=== PATIENT | female | born 1985 | race African-American/Black ===

== ENCOUNTER 2018-08-26 17:01 | Observation (INO) | payer MEDICAID ==
[~2018-08-26 17:01] MED LIST: ACE650RS PO; PREN-129 PO
== END 2018-08-26 18:55 | disposition home or self-care (01) | DRG 566 ==
LOC: LDRP 17:01
PROVIDERS: ADMIT Specialist; ATTEND Specialist
DX: O00.01 Abdominal pregnancy with intrauterine pregnancy (principal); O99.323 Drug use complicating pregnancy, third trimester; O99.283 Endocrine, nutritional and metabolic diseases complicating pregnancy, third trimester; E86.0 Dehydration; O26.893 Other specified pregnancy related conditions, third trimester; R51 Headache; N89.8 Other specified noninflammatory disorders of vagina; F12.90 Cannabis use, unspecified, uncomplicated; Z3A.37 37 weeks gestation of pregnancy
CPT/HCPCS: 59025; 81002; G0378; 96365; 96366

== ENCOUNTER 2018-09-06 23:14 | Observation (INO) | payer MEDICAID | END 2018-09-07 00:10 | disposition home or self-care (01) | DRG 566 | LOC: LDRP 23:14 | PROVIDERS: ADMIT Specialist; ATTEND Specialist | DX: O42.92 Full-term premature rupture of membranes, unspecified as to length of time between rupture and onset of labor (principal); O99.323 Drug use complicating pregnancy, third trimester; F12.90 Cannabis use, unspecified, uncomplicated; Z3A.39 39 weeks gestation of pregnancy | CPT/HCPCS: 59025; 81002; G0378 ==

== ENCOUNTER 2018-09-12 06:50 | Inpatient (IN) | payer MEDICAID ==
[~2018-09-12] VITALS: Ht 167.6 cm; Wt 106.1 kg
[2018-09-12] MEDS ORDERED: LIDOCAINE 2%HCL (LOCAL ANESTH.) INJ 20ML MDV ID PRN (07:30)
[2018-09-12] MEDS ORDERED: METHYLERGONOVINE MALEATE 0.2 MG/ML AMP IM PRN (07:30)
[2018-09-12] MEDS ORDERED: PHISODERM TOP SOLN 240ML BTL TOP PRN (07:30)
[2018-09-12] MEDS ORDERED: LACT. RINGERS/OXYTOCIN 20UNITS 1,000 ML IV SCH ×3 (07:30→18:47)
[2018-09-12] MEDS ORDERED: WITCH HAZEL-GLYCERIN PAD TOP PRN (07:30)
[2018-09-12] MEDS ORDERED: PENICILLIN G POT 5MIL/D5 50ML 50 ML IV ONE (07:30)
[2018-09-12] MEDS ORDERED: DERMOPLAST 60ML BOTTLE TOP PRN (07:30)
[2018-09-12] MEDS ORDERED: LACTATED RINGER'S 1,000 ML IV SCH (07:30)
[2018-09-12 08:13] LABS: Basophils # (auto) 0.1 uL; Hemoglobin 8.8 g/dL (12.2-16.2); Mean Corpuscular Hemoglobin 20.6 pg (28.0-32.0); Monocytes # (auto) 1.1 uL; Monocytes % (auto) 9.5 % (0.0-12.0); Neutrophils # (auto) 8.1 uL
[2018-09-12 08:14] LABS: Basophils % (auto) 0.6 % (0.0-2.0); Eosinophils # (auto) 0.4 uL; Eosinophils % (auto) 3.2 % (0.0-7.0); Hematocrit 26.5 % (36.0-46.0); Lymphocytes # (auto) 2.2 uL; Lymphocytes % (auto) 18.7 % (10.0-50.0); Mean Corpuscular Hgb Conc. 33.3 g/dL (32.0-36.0); Mean Corpuscular Volume 61.9 fL (80.0-100.0); Platelet Count (auto) 229 10^3/uL (140-450); Red Blood Cells 4.29 10^6/uL (4.0-5.20); Red Cell Distribution Width 18.8 % (11.8-14.3); White Blood Cell 11.9 10^3/uL (4.4-10.8)
[2018-09-12 08:25] LABS: Albumin 2.7 g/dL (3.4-5.0); Calcium 8.4 mg/dL (8.5-10.1); Potassium 3.5 mmol/L (3.5-5.1)
[2018-09-12 08:28] LABS: BUN/Creatinine Ratio 16.4; INR 0.95 (0.9-1.15)
[2018-09-12 08:31] LABS: Bilirubin, Total 0.6 mg/dL (0.2-1.0); Total Protein 6.3 g/dL (6.4-8.2)
[2018-09-12] MEDS ORDERED: PROMETHAZINE HCL 25 MG/ML 1ML IV PRN (09:15)
[2018-09-12] MEDS ORDERED: NALBUPHINE HCL 10 MG/1ml INJECTION IV PRN ×2 (09:15→18:00)
[2018-09-12] MEDS ORDERED: TERBUTALINE SULFATE 1 MG/ML 1ML VIAL SC ONE (09:30)
[2018-09-12 10:05] LABS: Alcohol, Urine < 3.0 mg/dL (0-5); Amphetamine Screen, Urine NEGATIVE (NEGATIVE); Barbiturate Scree,Urine NEGATIVE (NEGATIVE); Benzodiazephine Screen, Urine NEGATIVE (NEGATIVE); Cannabinoid Screen, Urine POSITIVE (NEGATIVE); Cocaine Screen, Urine NEGATIVE (NEGATIVE); Opiate Scree,Urine NEGATIVE (NEGATIVE); Phencyclidine Screen, Urine NEGATIVE (NEGATIVE)
[2018-09-12] MEDS ORDERED: PENICILLIN G POTASSIUM 2,500,000 UNITS in D5W 5% 50 ML IV SCH (11:30)
[2018-09-12] MEDS ORDERED: fentaNYL W ROPIVACAINE 150 ML EPI SCH ×2 (15:00→17:30)
[2018-09-12] MEDS ORDERED: ePHEDrine SULFATE 50 MG/ML AMP IV ONE ×2 (15:00→17:30)
[2018-09-12] MEDS ORDERED: NALOXONE HCL 0.4 MG/ML VIAL IV ONE ×2 (15:00→17:30)
[2018-09-12] MEDS ORDERED: SODIUM CHLORIDE 0.9% 500 ML IV PRN (17:30)
[2018-09-12] MEDS ORDERED: LACT. RINGERS/OXYTOCIN 20UNITS 500 ML IV ONE (17:47)
[2018-09-12] MEDS ORDERED: ACETAMINOPHEN 325 MG TAB PO PRN (18:00)
[2018-09-12] MEDS: IBUPROFEN 600 MG TAB PO PRN ×2 (18:06→22:56)
--- NOTE | 2018-09-12 18:30 | NUR ---
Ambulation: Patient OOB with standby assistance by RN. Patient ambulated to bathroom with steady gait. Patient able to void without difficulty 500 ML. [facility] teaching provided with returned demonstration by patient. Clean gown provided and bed linen changed. Patient ambulated back to bed with steady gait and no distress noted.
[2018-09-12 19:00] VITALS: BP 132/78
[2018-09-12] MEDS ORDERED: FERROUS SULFATE 325 MG TAB PO ONE (22:00)
--- NOTE | 2018-09-12 22:24 | NUR ---
Teaching: MOB educated on contraindications of using marijuana and . PT desires to continue against education Reviewed information in [facility] booklet with patient. Discussed benefits of and risks associated with not . Discussed different positions, proper latch, feeding cues, and baby-led . Provided information of medication side effects related to . All questions and concerns addressed at this time. Patient verbalized understanding of information.
[2018-09-12 23:07] VITALS: BP 135/72
[2018-09-13] MEDS: IBUPROFEN 600 MG TAB PO PRN ×4 (02:32→17:30)
[2018-09-13 02:42] VITALS: BP 134/80
[2018-09-13 05:08] LABS: RPR Non Reactive (Non Reactive)
[2018-09-13 07:00] VITALS: BP 132/90
--- NOTE | 2018-09-13 07:16 | NUR ---
PT MEDICATED WITH MOTRIN 600MG PO PER ORDERS FOR ABD CRAMPS AND PAIN TO PERINEUM RATING 6/10.
[2018-09-13] MEDS ORDERED: FERROUS SULFATE 325 MG TAB PO ONE (10:00)
[2018-09-13] MEDS ORDERED: FERROUS SULFATE 325 MG TAB PO SCH (10:00)
[2018-09-13 11:20] VITALS: BP 149/85
--- NOTE | 2018-09-13 12:41 | NUR ---
I received a page from nurse Morel letting me know that there was a social service consult on this patient due to mom/baby + for THC and for mom's score on the depression scale. I spoke with patient-she said she lives with her brothers and her 2 other kids-she states she has all necessary supplies for her new baby-she states she has very good family support. She said the father of the baby Ishmael Schroeder is involved. She verifies that address in chart is correct [address] [place] [address], and that her phone number is [phone]. She said she had been using marijuana sporadically due to her severe nausea and inability to sleep, that she had not used it in the past week and that she would not be using it while she is breast feeding. She does not feel depressed at this time nor has she ever had any depression issues in the past. I let her know that there is a phone number on the back of her [facility] card for behavioral health help if she ever feels like she needs it, and that there is also the [facility] that can offer her immediate assistance. Baby's name is Ledy Schroeder and weight was 8 pounds 5 ounces. I called CPS to open a case-spoke with Lorena-provided her with all necessary information-she provided me with reference number [id number]. I relayed this information to nurse Morel.
[2018-09-13 15:00] VITALS: BP 141/86
--- NOTE | 2018-09-13 17:30 | NUR ---
Discharge: Discharge instructions given as ordered. Pt encouraged to follow up with DEMAND MANAGER as instructed. All questions and concerns addressed. Patient verbalized understanding. Medication reconciliation completed and copy given to patient. . Patient encouraged to prepare to depart unit.
[2018-09-13 18:49] VITALS: BP 142/71
[2018-09-13 19:00] VITALS: BP 145/75
--- NOTE | 2018-09-13 19:00 | NUR ---
Discharge: Patient taken to vehicle via wheelchair with all personal belongings, accompanied by staff and family member. No distress noted at time of departure, no adverse changes in status since initial assessment.
== END 2018-09-13 19:02 | disposition home or self-care (01) | DRG 560 ==
LOC: LDRP 06:50 → OBSVTOIN 06:50
PROVIDERS: ADMIT Obstetrics & Gynecology; ATTEND Obstetrics & Gynecology
PROC: 10E0XZZ Delivery of Products of Conception, External Approach (ICD-10-PCS; principal; 2018-09-12)
PROC: 0UQMXZZ Repair Vulva, External Approach (ICD-10-PCS; 2018-09-12)
PROC: 10H07YZ Insertion of Other Device into Products of Conception, Via Natural or Artificial Opening (ICD-10-PCS; 2018-09-12)
PROC: 3E033VJ Introduction of Other Hormone into Peripheral Vein, Percutaneous Approach (ICD-10-PCS; 2018-09-12)
PROC: 3E0R3BZ Introduction of Anesthetic Agent into Spinal Canal, Percutaneous Approach (ICD-10-PCS; 2018-09-12)
PROC: 00HU33Z Insertion of Infusion Device into Spinal Canal, Percutaneous Approach (ICD-10-PCS; 2018-09-12)
DX: O69.81X0 Labor and delivery complicated by cord around neck, without compression, not applicable or unspecified (principal); O42.02 Full-term premature rupture of membranes, onset of labor within 24 hours of rupture; O71.82 Other specified trauma to perineum and vulva; Z37.0 Single live birth; Z3A.40 40 weeks gestation of pregnancy
CPT/HCPCS: 36415; 59025; 62282; 80053; 80307; 81002; 84112; 85025; 85610; 85730; 86592; 86850; 86900; 86901; 86920; 94760; 96361; 96365; 96366; 96374; G0378; J2540; J2590; J3010; J7060

== ENCOUNTER 2020-02-28 09:05 | Observation (INO) | payer MEDICAID ==
[~2020-02-28] VITALS: Ht 167.6 cm; Wt 113.4 kg
[~2020-02-28 09:05] MED LIST changes: -ACE650RS PO
== END 2020-02-28 12:57 | disposition home or self-care (01) ==
LOC: LDRP 09:05
PROVIDERS: ADMIT Obstetrics & Gynecology; ATTEND Obstetrics & Gynecology
DX: O48.0 Post-term pregnancy (principal); O26.893 Other specified pregnancy related conditions, third trimester; R10.9 Unspecified abdominal pain; O12.03 Gestational edema, third trimester; O99.323 Drug use complicating pregnancy, third trimester; F12.90 Cannabis use, unspecified, uncomplicated; Z87.891 Personal history of nicotine dependence; Z3A.40 40 weeks gestation of pregnancy
CPT/HCPCS: 59025; 76818; 81002; G0378

== ENCOUNTER 2020-03-01 14:30 | Observation (INO) | payer MEDICAID | END 2020-03-01 17:33 | disposition home or self-care (01) | LOC: LDRP 14:30 | PROVIDERS: ADMIT Specialist; ATTEND Specialist | DX: O48.0 Post-term pregnancy (principal); O62.9 Abnormality of forces of labor, unspecified; O99.323 Drug use complicating pregnancy, third trimester; F12.90 Cannabis use, unspecified, uncomplicated; Z79.899 Other long term (current) drug therapy; Z87.891 Personal history of nicotine dependence; Z3A.40 40 weeks gestation of pregnancy | CPT/HCPCS: 59025; 76818; 81002; 96360; 96361; G0378 ==

== ENCOUNTER 2020-03-02 10:51 | Inpatient (IN) | payer MEDICAID ==
[~2020-03-02] VITALS: Ht 167.6 cm; Wt 115.2 kg
[2020-03-02] MEDS ORDERED: LACTATED RINGER'S 1,000 ML IV SCH (11:30)
[2020-03-02] MEDS ORDERED: PENICILLIN G POT 5MIL/D5 50ML 50 ML IV ONE (11:30)
[2020-03-02] MEDS ORDERED: miSOPROStol 50 MCG per PRE-CUT 1/2 TAB PO PRN (11:30)
[2020-03-02] MEDS ORDERED: DERMOPLAST 60ML BOTTLE TOP PRN (11:30)
[2020-03-02] MEDS ORDERED: WITCH HAZEL-GLYCERIN PAD TOP PRN (11:30)
[2020-03-02] MEDS ORDERED: PHISODERM TOP SOLN 240ML BTL TOP PRN (11:30)
[2020-03-02 12:12] LABS: Albumin 2.6 g/dL (3.4-5.0); Calcium 8.5 mg/dL (8.5-10.1); Potassium 3.8 mmol/L (3.5-5.1)
[2020-03-02 12:14] LABS: Eosinophils # (auto) 0.2 10 ^3/uL (0-0.8); Hemoglobin 10.7 g/dL (12.2-16.2); Neutrophils # (auto) 9.6 10 ^3/uL (1.6-8.6)
[2020-03-02 12:19] LABS: Basophils # (auto) 0 10 ^3/uL (0-0.2); Basophils % (auto) 0.3 % (0.0-2.0); Eosinophils % (auto) 1.3 % (0.0-7.0); Lymphocytes % (auto) 16.3 % (10.0-50.0); Mean Corpuscular Hemoglobin 22.8 pg (28.0-32.0); Mean Corpuscular Hgb Conc. 34.5 g/dL (32.0-36.0); Monocytes # (auto) 0.6 10 ^3/uL (0-1.3); Monocytes % (auto) 5.1 % (0.0-12.0); Nucleated Red Blood Cells % 0.2 %; Platelet Count (auto) 243 10^3/uL (140-450); Red Cell Distribution Width 17.8 % (11.8-14.3); White Blood Cell 12.5 10^3/uL (4.4-10.8)
[2020-03-02 12:27] LABS: BUN/Creatinine Ratio 11.8; Bilirubin, Total 0.3 mg/dL (0.2-1.0); Total Protein 6.8 g/dL (6.4-8.2)
[2020-03-02 12:46] LABS: INR 0.95 (0.9-1.15); Partial Thromboplastin Time 29.8 sec (23.0-31.2)
[2020-03-02] MEDS ORDERED: fentaNYL CITRATE 100 MCG/2 ML VL IV ONE (13:45)
[2020-03-02] MEDS ORDERED: fentaNYL 400mCg/200ml W ROPIVA 200 ML EPI SCH (13:45)
[2020-03-02] MEDS ORDERED: LIDOCAINE HCL 2 %PF INJ 10ML AMP IJ ONE (13:45)
[2020-03-02] MEDS ORDERED: LACTATED RINGER'S 1,000 ML IV ONE (13:45)
[2020-03-02] MEDS ORDERED: NALOXONE HCL 0.4 MG/ML VIAL IV ONE (13:45)
[2020-03-02] MEDS ORDERED: ePHEDrine SULFATE 50 MG/ML AMP IV ONE (13:45)
[2020-03-02] MEDS ORDERED: ROPIVACAINE HCL 200 ML EPI SCH ×2 (14:00→14:15)
[2020-03-02] MEDS ORDERED: PENICILLIN G POTASSIUM 2,500,000 UNITS in D5W 5% 50 ML IV SCH (15:30)
[2020-03-02] MEDS ORDERED: BUTORPHANOL TARTRATE 2 MG/1 ML VIAL IV PRN (16:00)
[2020-03-02] MEDS ORDERED: PROMETHAZINE HCL 25 MG/ML 1ML IM PRN (16:00)
[2020-03-02] MEDS ORDERED: LIDOCAINE 2%HCL (LOCAL ANESTH.) INJ 20ML MDV ONE (17:14)
[2020-03-02] MEDS ORDERED: LACT. RINGERS/OXYTOCIN 20UNITS 1,000 ML IV ONE (17:45)
[2020-03-02 17:48] LABS: Amphetamine Screen, Urine NEGATIVE (NEGATIVE); Barbiturate Scree,Urine NEGATIVE (NEGATIVE); Benzodiazephine Screen, Urine NEGATIVE (NEGATIVE); Cannabinoid Screen, Urine POSITIVE (NEGATIVE); Cocaine Screen, Urine NEGATIVE (NEGATIVE); Phencyclidine Screen, Urine NEGATIVE (NEGATIVE)
[2020-03-02 17:56] LABS: Opiate Scree,Urine NEGATIVE (NEGATIVE)
[2020-03-02] MEDS: IBUPROFEN 600 MG TAB PO PRN (18:13)
[2020-03-02 20:28] LABS: Urine Bacteria FEW /hpf (None Seen); Urine Blood 2+ /uL (Negative); Urine Specific Gravity 1.025 (1.001-1.035); Urine WBC 4 /hpf (0 - 5)
[2020-03-02] MEDS ORDERED: ACETAMINOPHEN 500 MG TAB PO ONE (21:00)
[2020-03-02 23:30] VITALS: BP 132/76
[2020-03-03] VITALS (8 sets, daily range): BP systolic 110–146; BP diastolic 63–86
[2020-03-03] MEDS: IBUPROFEN 600 MG TAB PO PRN ×5 (03:07→22:48)
[2020-03-03] MEDS: ACETAMINOPHEN 325 MG TAB PO PRN ×4 (04:28→20:39)
[2020-03-03 05:11] LABS: RPR Non Reactive (Non Reactive)
[2020-03-03] MEDS ORDERED: OXYTOCIN 10UNIT/ML 1ML VIAL IV ONE (19:02)
[2020-03-04] MEDS: ACETAMINOPHEN 325 MG TAB PO PRN ×2 (00:52→08:54)
[2020-03-04 02:47] VITALS: BP 130/78
[2020-03-04] MEDS: IBUPROFEN 600 MG TAB PO PRN (05:17)
[2020-03-04 07:00] VITALS: BP 128/79
== END 2020-03-04 10:26 | disposition home or self-care (01) | DRG 560 ==
LOC: LDRP 10:51 → OBSVTOIN 11:15
PROVIDERS: ADMIT Specialist; ATTEND Specialist
PROC: 10E0XZZ Delivery of Products of Conception, External Approach (ICD-10-PCS; principal; 2020-03-02)
PROC: 3E0P7VZ Introduction of Hormone into Female Reproductive, Via Natural or Artificial Opening (ICD-10-PCS; 2020-03-02)
DX: O69.81X0 Labor and delivery complicated by cord around neck, without compression, not applicable or unspecified (principal); O99.824 Streptococcus B carrier state complicating childbirth; O99.324 Drug use complicating childbirth; F12.90 Cannabis use, unspecified, uncomplicated; Z20.822 Contact with and (suspected) exposure to COVID-19; Z37.0 Single live birth; Z3A.40 40 weeks gestation of pregnancy
CPT/HCPCS: 36415; 59025; 59409; 80053; 80307; 81001; 84112; 85025; 85610; 85730; 86592; 86850; 86900; 86901; 87426; 94760; 96360; 96361; 96365; 96366; 96374; G0378; J2540; J7060

== ENCOUNTER 2021-11-27 20:16 | Emergency (ER) | payer MEDICAID ==
[~2021-11-27] VITALS: Ht 167.6 cm; Wt 100.0 kg
[2021-11-27 20:16] VITALS: BP 122/79
[2021-11-28] MEDS ORDERED: TETANUS-DIPTH-ACEL PERTUSSIS 0.5ML SYR Tdap IM ONE (01:30)
[2021-11-28] MEDS ORDERED: CEPH-510 PO (03:26)
[2021-11-28] MEDS ORDERED: ACET-1158 PO (03:26)
== END 2021-11-28 03:46 | disposition home or self-care (01) ==
LOC: ER 20:18
DX: S70.352A Superficial foreign body, left thigh, initial encounter (principal); F17.210 Nicotine dependence, cigarettes, uncomplicated; F12.10 Cannabis abuse, uncomplicated; W22.8XXA Striking against or struck by other objects, initial encounter; Y93.89 Activity, other specified; Y92.89 Other specified places as the place of occurrence of the external cause; Y99.8 Other external cause status
CPT/HCPCS: 81025; 90471; 90715

== ENCOUNTER 2024-05-03 21:50 | Inpatient (IN) | payer MEDICAID ==
[~2024-05-03] VITALS: Ht 167.6 cm; Wt 125.2 kg
[~2024-05-03 21:50] MED LIST changes: +ACET500T58 PO; +CEPH-510 PO
[2024-05-03] MEDS ORDERED: NALBUPHINE HCL 10 MG/1ml INJECTION IM PRN (22:15)
[2024-05-03] MEDS ORDERED: NALBUPHINE HCL 10 MG/1ml INJECTION IV PRN (22:15)
[2024-05-03 23:48] LABS: Basophils # (auto) 0.1 10 ^3/uL (0-0.2); Eosinophils # (auto) 0.5 10 ^3/uL (0-0.8); Mean Corpuscular Hemoglobin 22.5 pg (28.0-32.0)
[2024-05-03 23:50] LABS: Basophils % (auto) 0.6 % (0.0-2.0); Eosinophils % (auto) 3.8 % (0.0-7.0); Hematocrit 26.5 % (36.0-46.0); Hemoglobin 9.2 g/dL (12.2-16.2); Lymphocytes # (auto) 2.4 10 ^3/uL (0.4-5.4); Lymphocytes % (auto) 18.8 % (10.0-50.0); Mean Corpuscular Hgb Conc. 34.7 g/dL (32.0-36.0); Monocytes # (auto) 1.1 10 ^3/uL (0-1.3); Monocytes % (auto) 8.7 % (0.0-12.0); Neutrophils # (auto) 8.8 10 ^3/uL (1.6-8.6); Neutrophils % (auto) 68.1 % (37.0-80.0); Platelet Count (auto) 256 10^3/uL (140-450); Red Blood Cells 4.08 10^6/uL (4.0-5.20); Red Cell Distribution Width 17.5 % (11.8-14.3)
[2024-05-03 23:54] LABS: Urine Bacteria None Seen /hpf (None Seen)
[2024-05-04 00:02] LABS: INR 0.98 (0.9-1.15); Partial Thromboplastin Time 30.7 SEC (24.5-34.5); Prothrombin Time 10.4 sec (9.3-11.8)
[2024-05-04 00:07] LABS: Alanine Aminotransferase 11 U/L (7-40); Albumin 3.7 g/dL (3.2-4.8); Anion Gap 9 (5-15); BUN/Creatinine Ratio 10.4 (10.0-20.0); Calcium 9.2 mg/dL (8.7-10.4); Carbon Dioxide 21 mmol/L (20-31); Glucose 100 mg/dL (74-106); Sodium 141 mmol/L (136-145); Total Protein 6.1 g/dL (5.7-8.2)
[2024-05-04 00:08] LABS: Bilirubin, Total 0.4 mg/dL (0.2-1.0)
[2024-05-04 00:09] LABS: Alkaline Phosphatase 131 U/L (46-116); Aspartate Aminotransferase 12 U/L (13-40); Blood Urea Nitrogen 5 mg/dL (9-23); Chloride 111 mmol/L (98-107); Potassium 3.3 mmol/L (3.5-5.1)
[2024-05-04 00:25] LABS: Urine Blood Negative /uL (Negative); Urine Clarity Turbid (Clear); Urine Color Yellow (Yellow); Urine Mucus FEW (None Seen); Urine Protein, UAD TRACE (Negative); Urine Specific Gravity 1.023 (1.001-1.035); Urine Squamous Epithelial Cell FEW /hpf (<5); Urine Urobilinogen 8 mg/dL (Negative); Urine WBC 1 /HPF (0-5); Urine pH 6.5 (5.0-9.0)
[2024-05-04 00:27] LABS: Cannabinoid Screen, Urine Pos (NEGATIVE)
[2024-05-04 00:31] LABS: Amphetamine Screen, Urine Neg (NEGATIVE); Barbiturate Scree,Urine Neg (NEGATIVE); Benzodiazephine Screen, Urine Neg (NEGATIVE); Cocaine Screen, Urine Neg (NEGATIVE); Opiate Scree,Urine Neg (NEGATIVE); Phencyclidine Screen, Urine Neg (NEGATIVE)
--- NOTE | 2024-05-04 01:23 | DVHHP2 ---
OB CC & HPI Date Date of Admission: May 04, 2024 Patient Identification: : 5 Para: 4 EDC: May 03, 2024 EGA: 40.1 Chief Complaints: Reason for admission: induction of labor Indication for induction: other (Elective 40+ weeks, Suspected LGA 8lb 6oz baby) History of Present Complaints 39y with term IUP 40.[address] Olmos for elective Induction of Labor (IOL) Patient w/ suspected LGA infant, 8lb 6oz by US last week. Denies GDM, Risk factors: AMA, Morbid obesity, THC+, Gestational HTN, ANEMIA Hb 9.2 SBP's 140's on admission, denies any symptoms of pre eclampsia GBS result, unknown. Past Medical History Cardiac: No pertinent Hx Pulmonary: No pertinent Hx Central Nervous System: No pertinent Hx GI: No pertinent Hx Hemotology/Oncology: Anemia NOS Hepatobiliary: No pertinent Hx Psychiatric: No pertinent Hx Musculoskeletal: No pertinent Hx Rheumotologic: No pertinent Hx Infectious Disease: No peritnent Hx ENT: No pertinent Hx Renal/: No pertinent Hx Endocrine: No pertinent Hx Dermatology: No pertinent Hx Past Surgical History: No pertinent Hx OB History OB History Care: Good Care Ultrasounds: Normal mid trimester US Obstetrical Complications: None Medical Complications: None Allergies: Coded Allergies: Latex (Verified Allergy, Mild, swelling, 05/04/24) Home Meds Active Scripts Acetaminophen (Acetaminophen) 500 Mg Tab, 500 MG PO QIDP, #30 TAB 0 Refills Prov:VENKATESH VELIZ 11/28/21 Cephalexin ( Keflex 500) 500 Mg Cap, 1 CAP PO BID for 7 Days, #14 CAP 0 Refills Prov:VENKATESH VELIZ 11/28/21 Reported Medications Vit W/ Ferrous Fumara () Tab, 1 TAB PO DAILY, TAB 06/22/13 Current Medications Current Medications Medications (Trade) Dose Ordered Sig/Alycia Route PRN Reason Start Time Stop Time Status Last Admin Lactated Ringer's 1,000 ml @ 125 mls/hr Q8H IV 05/03/24 23:00 Nalbuphine HCl (Nubain) 10 mg Q4HP PRN IM MODERATE PAIN (4-6 PAIN SCALE) 05/03/24 22:15 Nalbuphine HCl (Nubain) 10 mg Q4HP PRN IV MODERATE PAIN (4-6 PAIN SCALE) 05/03/24 22:15 Penicillin G Potassium 1939400 units/Dextrose 50 ml @ 100 mls/hr Q4H IV 05/04/24 02:15 Misoprostol (Cytotec) 50 mcg Q4HPRN PRN PO CERVICAL RIPENING 05/04/24 01:00 Family & Social History Family/Social History Blood Type: O+ Rubella: immune RPR/VDRL: Negative GBS Status: Unknown HBsAG: Negative Review of Systems Constitutional: No symptom reported Ears, Nose, & Throat: No symptom reported Eyes: No symptom reported Pulmonary/Respiratory: No symptom reported Cardiovascular: No symptom reported Gastrointestinal: No symptom reported Genitourinary: No symptom reported Musculoskeletal: No symptom reported Skin: No symptom reported Psychiatric: No symptom reported Endocrine: No symptom reported Hemotologic/Lymphatic: No symptom reported OB Admission Exam Physical Exam HEENT: NCAT Heart: Rhythm Normal Lungs: Clear Abdomen: Gravid Extremities: Normal Reflexes: Normal Pelvic Exam: RN exam : Ft/50%/-3 VTX Membranes: Intact Heart Rate: 130's Accelerations: Accelerations Present Decelerations: No Decelerations Short Term Variability: Present Machine Lay Out Worker Variability: Average (6-25) Contractions on Admission: >10 Minutes Apart Intensity: Mild OB Plan Plan Admitting Diagnosis: 1. 39y with Term IUP 40.1 wk, elective induction of labor 2. Suspected LGA fetus, 8lb 6oz EFW 3. GBS unknown 4. Morbid obesity 5/ THC+ Anemia Plan: Induction Induction Methd: Misoprostol protocol Other Plan: Admit for labor and delivery, planned cytotec induction. Informed consent obtained. Indications for IOL discussed. R/B/A of vaginal delivery vs C/Section reviewed Patient declined primary c/section delivery despite uncertainty in predicting EFW accurately. Understands risks of macrosomia including trauma, asphyxia , shoulder dystocia w/ neurological injury to fetus and even BP's elevated, Gestational HTN. PIH labs and urine Prot/cr ratio normal. Will continue to observe. - IV labetalol in labor PRN SBP> 160 or DBP> 110 per protocol. - Will consider Magnesium Sulfate if severe features of HTN become present.Currently, MagSO4 not indicated THC+, counseled regarding risks to self and fetus GBS unknown, will administer Steff prophylaxis when SROM or in active labor. Care endorsed to Dr. Olmos, recreational resort manager physician at 0700 Visit Coding OBGYN Date of Service: May 04, 2024 Billing Provider: CLAUS FREITAS DO ANIMAL ECOLOGIST Common Visit Codes: [id number] INP/OBS CARE (HIGH) CLAUS FREITAS DO May 04, 2024 01:23
[2024-05-04] MEDS: miSOPROStol 50 MCG per PRE-CUT 1/2 TAB PO PRN (01:30)
[2024-05-04 01:32] LABS: Protein, Urine 38.6 mg/dL (1-14)
[2024-05-04 01:35] LABS: Creatinine, Urine 191.18 mg/dL (30.0-125.0); Urine Protein/Creatinine Ratio 0.2
[2024-05-04] MEDS: ePHEDrine SULFATE 50 MG/ML AMP IV ONE (02:30)
[2024-05-04] MEDS: NALOXONE HCL 0.4 MG/ML VIAL IV ONE (02:30)
[2024-05-04] MEDS: LACTATED RINGER'S 1,000 ML IV ONE (02:36)
[2024-05-04] MEDS: LACTATED RINGER'S 1,000 ML IV SCH (02:36)
[2024-05-04] MEDS: LACT. RINGERS/OXYTOCIN 20UNITS 500 ML IV ONE ×2 (02:45→03:15)
[2024-05-04] MEDS: LABETALOL HCL 200 MG TAB PO ONE (02:45)
[2024-05-04] MEDS: PENICILLIN G POT 5MIL/D5 50ML 50 ML IV ONE (02:47)
[2024-05-04] MEDS: POTASSIUM CHL 20 Meq TABLET PO ONE (02:47)
--- NOTE | 2024-05-04 04:14 | EPIDURAL ---
Anesthesia Procedural Note - Epidural Informed consent obtained?: Yes Medication Administered: Fentanyl 100 mcg Sterile prept drape: Yes Spinal level of insertion: L4-L5 Test dose of lidocaine & Epine: Negative Infusion started: Yes Start time: 03:15 End time: 04:00 Procedure description Procedure description: Called for labor analgesia. Chart reviewed, history taken and patient examined. Patient is here for induction of labor at 40+1 weeks gestation. Patient found to have elevated blood pressures upon admission, being monitored for PIH. She is requesting epidural. Informed consent for CSE obtained. Sitting position, sterile prep and drape. L4-5 space infiltrated with 1% lido at 0319 (BP 184/93 HR 121 spO2 96). Epidural needle placed with LEA at 9cm. 25G spinal needle +clear CSF. 15mcg fentanyl given IT at 0330 (BP 173/80 HR 114 spO2 96). Epidural catheter secured at 15cm. Aspiration and test dose (3cc 1.5% lido with epi) negative at 0334 (BP 148/1000 HR 112 spO2 97). 85 mcg fentanyl given via epidural at 0337 (BP 149/90 HR 114 spO2 96). Patient reports good pain relief. 0.2% ropivacaine infusion started at 0352 (BP 155/75 HR 98 spO2 96). Will follow as needed. CATIE TOVAR MD May 04, 2024 04:14
[2024-05-04] MEDS: LABETALOL HCL 20 MG/4 ML VL IV PRN (04:18)
[2024-05-04] MEDS: fentaNYL CITRATE 100 MCG/2 ML VL IV ONE (04:53)
[2024-05-04] MEDS: PENICILLIN G POTASSIUM 2,500,000 UNITS in D5W 5% 50 ML IV SCH (08:02)
[2024-05-04] MEDS: LABETALOL HCL 200 MG TAB PO SCH (10:09)
[2024-05-04] MEDS: LIDOCAINE HCL 2 %PF INJ 10ML AMP IJ ONE ×2 (15:39→16:44)
[2024-05-04] MEDS: fentaNYL CITRATE 100 MCG/2 ML VL ONE (15:39)
[2024-05-04] MEDS: ROPIVACAINE HCL 200 ML ONE (18:59)
[2024-05-05] VITALS (14 sets, daily range): BP systolic 121–168; BP diastolic 65–85; PULSE 62–73; RESP 16–18; TEMP 97.8–98.6; O2SAT 93–100
[2024-05-05] MEDS: ROPIVACAINE HCL 200 ML ONE (03:49)
--- NOTE | 2024-05-05 05:58 | DVHPN2 ---
Chief Complaints Patient reports: No new complaints, Other (PATIENT 3 CM CONTINUED INDUCTION.) Nursing reports: No new complaints, No abdominal pain, No chest pain, No dizziness, No cough Objective Vitals Vital Signs Date Time Temp Pulse Resp B/P (MAP) Pulse Ox O2 Delivery O2 Flow Rate FiO2 05/04/24 23:01 87 132/75 Medications Current Medications Medications (Trade) Dose Ordered Sig/Alycia Route PRN Reason Start Time Stop Time Status Last Admin Labetalol HCl (Normodyne Tablet) 200 mg Q12HR PO 05/04/24 10:00 05/04/24 23:01 General: Normal Neck: Normal Lungs: Normal Cardiovascular: Normal Abdominal: Normal Musculoskeletal: Normal Extremities: Normal Skin: Normal Neurological: Normal Studies Laboratory Tests 05/03/24 22:55 Test 05/03/24 22:55 Range/Units Serum Glucose 100 74-106 mg/dL Ass/Plan Assessment INDUCTION Plan EXPECTANT MANAGEMENT WE WILL HOLD OFF PITOCIN DR. Pacheco will take [place] REAL DO May 05, 2024 05:58
[2024-05-05] MEDS: WITCH HAZEL-GLYCERIN PAD TOP PRN (06:52)
[2024-05-05] MEDS: PHISODERM TOP SOLN 240ML BTL TOP PRN (06:52)
[2024-05-05] MEDS: DERMOPLAST 60ML BOTTLE TOP PRN (06:52)
--- NOTE | 2024-05-05 08:25 | DVHPN2 ---
OB Labor Progress Note Date and Time Seen Date Seen: May 05, 2024 Time Seen: 08:23 Subjective Patient reports: Feels better Objective Vital Signs AFEB vs stable Monitoring Method Monitoring Method: External Heart Rate Heart Rate Baseline: 130 Heart Rate Variability: Moderate Presence of FHR Accelerations: Yes Presence of FHR Decelerations: No Contractions Contractions Intensity: Moderate Membranes Membranes: Intact Vaginal Exam Vag Exam Deferred: No Vaginal Exam Dilation: 4 Vaginal Exam Effacement: 50 Vaginal Exam Station: -4 Vaginal Exam Presentation: Breech Vaginal Exam Show: None Medications Medications - Pitocin: No Medication - Epidural: Yes Lab Results Lab Results Vital Signs Date Time Temp Pulse Resp B/P (MAP) Pulse Ox O2 Delivery O2 Flow Rate FiO2 05/04/24 23:01 87 132/75 Current Medications Medications (Trade) Dose Ordered Sig/Alycia Start Time Stop Time Status Last Admin Dose Admin Lactated Ringer's 1,000 ml @ 125 mls/hr Q8H 05/03/24 23:00 05/05/24 03:50 125 MLS/HR Nalbuphine HCl (Nubain) 10 mg Q4HP PRN 05/03/24 22:15 Nalbuphine HCl (Nubain) 10 mg Q4HP PRN 05/03/24 22:15 Penicillin G Potassium 50 ml @ 100 mls/hr ONCE ONCE 05/03/24 22:15 05/03/24 22:44 DC 05/04/24 02:47 100 MLS/HR Penicillin G Potassium 6777487 units/Dextrose 50 ml @ 100 mls/hr Q4H 05/04/24 02:15 05/05/24 04:49 100 MLS/HR Misoprostol (Cytotec) 50 mcg Q4HPRN PRN 05/04/24 01:00 05/05/24 03:46 50 MCG Potassium Chloride (Klor-Con Tablet) 40 meq ONCE ONCE 05/04/24 01:30 05/04/24 01:39 DC 05/04/24 02:47 40 MEQ Labetalol HCl (Labetalol HCl) 20 mg Q2HPRN PRN 05/04/24 02:00 05/04/24 04:18 20 MG Naloxone HCl (Narcan) 0.2 mg PRN ONCE 05/04/24 02:30 05/04/24 02:34 DC Ephedrine Sulfate (ePHEDrine SULFATE) 10 mg PRN ONCE 05/04/24 02:30 05/04/24 02:34 DC Fentanyl Citrate 100 mcg ONCE ONCE 05/04/24 02:30 05/04/24 02:34 DC 05/04/24 04:53 100 MCG Lidocaine HCl (Xylocaine-Pf 2% Injection) 10 ml ONCE ONCE 05/04/24 02:30 05/04/24 02:34 DC 05/04/24 15:39 10 ML Lactated Ringer's 1,000 ml @ 1,000 mls/hr Q1H ONCE 05/04/24 02:30 05/04/24 03:29 DC 05/04/24 02:36 1,000 MLS/HR Witch Kimberly (Tucks) 1 pad PRN PRN 05/04/24 02:45 05/05/24 06:52 1 PAD Sodium Lauryl Sulfate (Phisoderm) 240 ml PRN PRN 05/04/24 02:45 05/05/24 06:52 240 ML Benzocaine (Dermoplast) 1 applic PRN PRN 05/04/24 02:45 05/05/24 06:52 1 APPLIC Oxytocin 500 ml @ 999 mls/hr Q31M ONCE 05/04/24 02:45 05/04/24 03:15 DC Oxytocin 500 ml @ 125 mls/hr Q4H ONCE 05/04/24 03:15 05/04/24 07:14 DC Labetalol HCl (Normodyne Tablet) 200 mg ONCE ONCE 05/04/24 02:45 05/04/24 02:46 DC Labetalol HCl (Normodyne Tablet) 200 mg Q12HR 05/04/24 10:00 05/04/24 23:01 200 MG Laboratory Tests Test 05/03/24 23:00 05/03/24 22:55 Range/Units Urine Color Yellow Yellow Urine Clarity Turbid H Clear Urine pH 6.5 5.0-9.0 Urine Specific [place] 1.023 1.001-1.035 Urine Protein Trace H Negative Urine Ketones Negative Negative Urine Blood Negative Negative /uL Urine Nitrite Negative Negative Urine Bilirubin Negative Negative Urine Urobilinogen 8 H Negative mg/dL Urine Leukocyte Esterase Negative Negative /uL Urine RBC 9 0 - 4 /hpf Urine Microscopic WBC 1 0-5 /HPF Urine Squamous Epithelial Cells Few <5 /hpf Urine Calcium Oxalate Crystals Many None Seen Urine Bacteria None seen None Seen /hpf Urine Mucus Few None Seen Urine Creatinine 191.18 H 30.0-125.0 mg/dL Urine Protein/Creatinine Ratio 0.20 Urine Glucose Normal Normal mg/dL Urine Total Protein 38.6 H 1-14 mg/dL Urine Opiates Screen Neg NEGATIVE Urine Fentanyl Screen Neg NEGATIVE Urine Barbiturates Screen Neg NEGATIVE Urine Phencyclidine Screen Neg NEGATIVE Urine Amphetamines Screen Neg NEGATIVE Urine Benzodiazepines Screen Neg NEGATIVE Urine Cocaine Screen Neg NEGATIVE Urine Cannabinoids Screen Pos NEGATIVE White Blood Count 13.0 H 4.4-10.8 10^3/uL Red Blood Count 4.08 4.0-5.20 10^6/uL Hemoglobin 9.2 L 12.2-16.2 g/dL Hematocrit 26.5 L 36.0-46.0 % Mean Corpuscular Volume 65.0 L 80.0-100.0 fL Mean Corpuscular Hemoglobin 22.5 L 28.0-32.0 pg Mean Corpuscular Hemoglobin Concent 34.7 32.0-36.0 g/dL Red Cell Distribution Width 17.5 H 11.8-14.3 % Platelet Count 256 140-450 10^3/uL Mean Platelet Volume 8.4 6.9-10.8 fL Neutrophils (%) (Auto) 68.1 37.0-80.0 % Lymphocytes (%) (Auto) 18.8 10.0-50.0 % Monocytes (%) (Auto) 8.7 0.0-12.0 % Eosinophils (%) (Auto) 3.8 0.0-7.0 % Basophils (%) (Auto) 0.6 0.0-2.0 % Neutrophils # (Auto) 8.8 H 1.6-8.6 10 ^3/uL Lymphocytes # (Auto) 2.4 0.4-5.4 10 ^3/uL Monocytes # (Auto) 1.1 0-1.3 10 ^3/uL Eosinophils # (Auto) 0.5 0-0.8 10 ^3/uL Basophils # (Auto) 0.1 0-0.2 10 ^3/uL Nucleated Red Blood Cells 0.0 % Prothrombin Time 10.4 9.3-11.8 sec Prothrombin Time INR 0.98 0.9-1.15 Activated Partial Thromboplast Time 30.7 24.5-34.5 SEC Sodium Level 141 136-145 mmol/L Potassium Level 3.3 L 3.5-5.1 mmol/L Chloride Level 111 H 98-107 mmol/L Carbon Dioxide Level 21 20-31 mmol/L Anion Gap 9 5-15 Blood Urea Nitrogen 5 L 9-23 mg/dL Creatinine 0.48 L 0.550-1.02 mg/dL Glomerular Filtration Rate Calc 125 >90 mL/min BUN/Creatinine Ratio 10.4 10.0-20.0 Serum Glucose 100 74-106 mg/dL Uric Acid 4.7 3.1-7.8 mg/dL Calcium Level 9.2 8.7-10.4 mg/dL Total Bilirubin 0.4 0.2-1.0 mg/dL Aspartate Amino Transferase (AST) 12 L 13-40 U/L Alanine Aminotransferase (ALT) 11 7-40 U/L Alkaline Phosphatase 131 H 46-116 U/L Total Protein 6.1 5.7-8.2 g/dL Albumin 3.7 3.2-4.8 g/dL Treponema pallidum Antibody Non-reactive Negative Hepatitis C Antibody Negative Negative Assessment Assessment Induction of labor, now malpresentation, fetus not engaged, breech confirmed by US small parts felt on cervical exam Plan Plan Stop induction due to malpresentation Will proceed w/ ' C/Section R/B/A discussed w/ patient Informed consent obtained. Plan discussed with: Patient Visit Coding OBGYN Date of Service: May 05, 2024 Billing Provider: CLAUS FREITAS DO DIRECTOR OF GOVERNMENT SALES Common Visit Codes: [id number] INP/OBS CARE(HIGH) CLAUS FREITAS DO May 05, 2024 08:25
--- NOTE | 2024-05-05 08:45 | DVH ---
LIMITED OB ULTRASOUND > 14 WKS: HISTORY: lie, possible breech TECHNIQUE: Multiple real-time grayscale images of the gravid uterus with duplex Doppler color flow an d M-mode spectral analysis. TRANSDUCER: Transabdominal COMPARISON: None FINDINGS/IMPRESSION: Single intrauterine . Oblique /breech presentation. Anterior placenta. heart rate 141 beats per minute Current JO, 10.1 cm.
[2024-05-05] MEDS: ceFAZolin 2 GM/D5W50ml 50 ML IV ONE (09:59)
[2024-05-05] MEDS: LIDOCAINE HCL 2 %PF INJ 10ML AMP IJ ONE (10:35)
[2024-05-05] MEDS ORDERED: MIDAZOLAM HCL 2MG/2ML 2ml VIAL (1mg/ml) ONE (10:42)
[2024-05-05] MEDS ORDERED: MORPHINE SULF PF 5 MG/10 ML VIAL ONE (10:42)
[2024-05-05] MEDS ORDERED: fentaNYL CITRATE 100 MCG/2 ML VL ONE (10:42)
[2024-05-05] MEDS: LIDOCAINE 1% HCL (LOCAL ANESTH.) INJ 20ML MDV ONE (11:10)
[2024-05-05] MEDS ORDERED: ONDANSETRON HCL 4 MG/2 ML VIAL ONE (11:30)
[2024-05-05] MEDS ORDERED: MIDAZOLAM HCL 2MG/2ML 2ml VIAL (1mg/ml) IV PRN (12:15)
[2024-05-05] MEDS ORDERED: DexAMETHasone SOD PHOS 10MG/1ML VIAL INJ IV PRN (12:15)
[2024-05-05] MEDS ORDERED: hydrALAZINE HCL 20 MG/ML VL IV PRN ×2 (12:15→13:15)
[2024-05-05] MEDS ORDERED: diphenhdrAMINE HCL 50 MG/1 ML VL IV PRN (12:15)
[2024-05-05] MEDS ORDERED: ONDANSETRON HCL 4 MG/2 ML VIAL IV PRN (12:15)
[2024-05-05] MEDS ORDERED: ePHEDrine SULFATE 50 MG/ML AMP IV PRN (12:15)
[2024-05-05] MEDS ORDERED: HYDROmorphone HCL 2 MG/ML VL/or syr IV PRN ×2 (12:15→12:45)
--- NOTE | 2024-05-05 12:29 | DVHOP ---
DATE OF SURGERY: 05/05/2024 PREOPERATIVE DIAGNOSES: * Term intrauterine with a failed induction. * unstable lie. * Maternal morbid obesity. FINAL DIAGNOSES: * Term intrauterine with a failed induction. * unstable lie. * Polyhydramnios. * Maternal morbid obesity. PROCEDURE PERFORMED: Primary low transverse section via Pfannenstiel skin incision. SURGEON: Wesly Sainz DO PUBLIC RELATIONS ANALYST: diagnostic tech. TYPE OF ANESTHESIA: Epidural. ANESTHESIOLOGIST: Kain Fitch MD INDICATIONS FOR PROCEDURE: The patient is a 39-year-old female who presented for induction of labor for suspected large for gestational age fetus. The patient was in early labor, 4 cm dilated upon which a cervical exam revealed a non-vertex presentation that was confirmed by ultrasound. The baby had turned to breech. Therefore, she was consented for a primary section. DESCRIPTION OF FINDINGS: Delivery of a liveborn female infant, scores of 8 and 9, weight 7 pounds 14 ounces. Clear amniotic fluid, polyhydramnios present. Unstable lie. The baby had spontaneously reverted back to cephalic presentation, but with umbilical cord also presenting.. Normal uterus. Two layer uterine closure. Normal bilateral fallopian tubes and ovaries, normal-appearing placenta. TECHNICAL PROCEDURE: After informed consent was obtained, the patient was taken to the operating room where her epidural anesthesia was found to be adequate. She was placed in the supine position with a slight leftward tilt. She was sterilely prepped and draped in the usual sterile fashion. A Pfannenstiel skin incision was made with the scalpel. The incision developed sharply to the underlying layer of fascia. The fascia was incised in the midline and extended laterally using sharp technique. The rectus muscles were dissected off the rectus fascia and entry into the peritoneal cavity was performed bluntly. The peritoneal incision was stretched manually. Next, the Osman O retractor was placed into the incision. Using a second scalpel, the lower uterine segment was incised in a low transverse fashion. The incision was extended laterally. The amniotic fluid membranes were ruptured. The fluid was clear. The baby was found to be in cephalic presentation again. The baby was delivered atraumatically. After delivery of the infant, the nose and mouth were suctioned. The cord was clamped and cut after 60 seconds and the baby handed off to waiting pediatric team. Cord blood was obtained. The placenta was spontaneously delivered. The uterus was exteriorized and cleared of all clots and debris using moist laparotomy sponges. The uterine incision was repaired with #1 spiral Stratafix in continuous running fashion in 2 layers. Excellent tissue approximation and hemostasis was obtained. The cul-de-sac and pericolic gutters were cleared of all clots and debris. The uterus was returned to the abdomen. The pelvis was irrigated with sterile water. Hemostasis was confirmed. All instrumentation was removed from the patient's abdomen. SNoW was placed over the lower uterine segment for added hemostasis. The Osman O retractor was removed. I then proceeded to close the rectus fascia using #1 Stratafix in continuous running fashion with good tissue approximation. The subcutaneous tissue was very thick greater than 3 cm in depth. It was closed in 2 layers using #2-0 plain gut. The subcutaneous tissue was completely approximated. The skin was closed in subcuticular fashion using 3-0 Stratafix. Next, the skin incision was sealed with Dermabond and a sterile dressing was then placed over the incision. The patient tolerated the procedure well. Sponge, lap and needle counts were correct x4. INTRAOPERATIVE COMPLICATIONS: None. ESTIMATED BLOOD LOSS: 700 mL. POSTOPERATIVE CONDITION: Stable. SPECIMENS: Cord blood and placenta. MEDICATIONS: The patient received 3 grams of Ancef prior to skin incision. DO GUERLINE Kuo TID: [id number] RECEIPT: [id number] MTD
[2024-05-05] MEDS: ACETAMINOPHEN IV 1000 MG/100ML (10MG/ML) IV PRN (13:42)
[2024-05-05] MEDS: ceFAZolin 1GM/50ML 50 ML IV SCH (19:40)
[2024-05-05] MEDS: KETOROLAC TROMETH 30 MG/ML 1ML VIAL IV PRN (22:59)
[2024-05-06] VITALS (9 sets, daily range): BP systolic 114–146; BP diastolic 66–80; PULSE 64–85; RESP 16–18; TEMP 97.8–98.4; O2SAT 95–99
[2024-05-06 05:18] LABS: Basophils # (auto) 0.1 10 ^3/uL (0-0.2); Basophils % (auto) 0.4 % (0.0-2.0); Eosinophils # (auto) 0.2 10 ^3/uL (0-0.8); Eosinophils % (auto) 0.9 % (0.0-7.0); Hemoglobin 8.3 g/dL (12.2-16.2); Lymphocytes # (auto) 2.2 10 ^3/uL (0.4-5.4); Lymphocytes % (auto) 13.5 % (10.0-50.0); Mean Corpuscular Hemoglobin 22.5 pg (28.0-32.0); Mean Corpuscular Hgb Conc. 34.6 g/dL (32.0-36.0); Mean Corpuscular Volume 65.2 fL (80.0-100.0); Monocytes # (auto) 1.7 10 ^3/uL (0-1.3); Monocytes % (auto) 10.5 % (0.0-12.0); Neutrophils # (auto) 12.2 10 ^3/uL (1.6-8.6); Neutrophils % (auto) 74.7 % (37.0-80.0); Platelet Count (auto) 246 10^3/uL (140-450); Red Blood Cells 3.68 10^6/uL (4.0-5.20); Red Cell Distribution Width 17.4 % (11.8-14.3); White Blood Cell 16.4 10^3/uL (4.4-10.8)
[2024-05-06 05:39] LABS: Alanine Aminotransferase 10 U/L (7-40); Albumin 3.5 g/dL (3.2-4.8); Anion Gap 5 (5-15); Aspartate Aminotransferase 16 U/L (13-40); BUN/Creatinine Ratio 11.3 (10.0-20.0); Bilirubin, Total 0.5 mg/dL (0.2-1.0); Calcium 9.1 mg/dL (8.7-10.4); Carbon Dioxide 24 mmol/L (20-31); Glucose 86 mg/dL (74-106); Potassium 4.1 mmol/L (3.5-5.1); Sodium 138 mmol/L (136-145)
[2024-05-06 05:42] LABS: Alkaline Phosphatase 120 U/L (46-116); Blood Urea Nitrogen 6 mg/dL (9-23); Chloride 109 mmol/L (98-107); Total Protein 5.7 g/dL (5.7-8.2)
--- NOTE | 2024-05-06 06:50 | DVHPN2 ---
Progress Note Date Seen: May 06, 2024 Subjective POD#1 s/p 1' C/Section for Failed IOL/ unstable lie (VTX to breech) S: No acute complaints. Lochia mild. Pain controlled. vital signs Vital Sign Date Time Temp Pulse Resp B/P (MAP) Pulse Ox O2 Delivery O2 Flow Rate FiO2 05/06/24 03:30 98.4 64 18 122/69 (86) 96 98.4 05/05/24 19:15 Room Air 05/05/24 12:15 7.0 100 Total Intake and Output 05/05/24 05/05/24 05/06/24 15:00 23:00 07:00 Output Total 525 ml 650 ml 1400 ml Balance -525 ml -650 ml -1400 ml medications Current Medications Medications Dose Ordered Sig/Alycia Route Start Time Stop Time Status Last Admin Dose Admin Lactated Ringer's 1,000 ml @ 125 mls/hr Q8H IV 05/03/24 23:00 05/05/24 22:40 125 MLS/HR Labetalol HCl 20 mg Q2HPRN PRN IV 05/04/24 02:00 05/04/24 04:18 20 MG Witch Kimberly 1 pad PRN PRN TOP 05/04/24 02:45 05/05/24 06:52 1 PAD Sodium Lauryl Sulfate 240 ml PRN PRN TOP 05/04/24 02:45 05/05/24 06:52 240 ML Benzocaine 1 applic PRN PRN TOP 05/04/24 02:45 05/05/24 06:52 1 APPLIC Labetalol HCl 200 mg Q12HR PO 05/04/24 10:00 05/05/24 22:39 200 MG Diphenhydramine HCl 25 mg Q4HP PRN IV 05/05/24 12:15 Ondansetron HCl 4 mg Q4HP PRN IV 05/05/24 12:15 Ketorolac Tromethamine 30 mg Q6HP PRN IV 05/05/24 12:15 05/10/24 12:14 05/05/24 22:59 30 MG Acetaminophen 1,000 mg [id number] PRN IV 05/05/24 13:00 05/06/24 22:01 05/05/24 13:42 1,000 MG Hydralazine HCl 5 mg Q6HP PRN IV 05/05/24 13:15 Cefazolin Sodium 50 ml @ 100 mls/hr Q8H IV 05/05/24 19:00 05/06/24 11:29 05/06/24 04:34 100 MLS/HR laboratory and microbiology Laboratory Tests 05/06/24 04:30 Test 05/06/24 04:30 Range/Units Serum Glucose 86 74-106 mg/dL Objective O: AFVSS Chest: heart and lung sounds normal. Abd soft, non-tender, fundus firm, BS, no rebound or guarding, Incision - dressing and incision clean, dry, intact Ext Neg Homans, Non-tender, edema Lochia - minimal Labs Reviewed Assessment/Plan POD#1 s/p 1' C/S doing well Precipitous drop in H/H Plan: Continue current care Advance orders Plan discussed with: Patient Visit Coding OBGYN Date of Service: May 06, 2024 Billing Provider: CLAUS FREITAS DO BANKRUPTCY ATTORNEY Common Visit Codes: [id number] INP/OBS CARE(MOD) CLAUS FREITAS DO May 06, 2024 06:50
[2024-05-06] MEDS ORDERED: IRON SUCROSE COMPLEX 110 ML IV SCH ×2 (07:00→12:00)
[2024-05-06] MEDS ORDERED: BISACODYL 10 MG RECT SUPP PR PRN (12:15)
[2024-05-06] MEDS ORDERED: HYDROcodone-ACET 5/325MG TAB PO PRN ×2 (12:15)
[2024-05-06] MEDS: IBUPROFEN 800 MG TAB PO PRN (16:53)
[2024-05-06] MEDS: SIMETHICONE 80 MG CHEWABLE TABLET PO SCH (18:03)
[2024-05-06] MEDS: ACETAMINOPHEN 500 MG TAB or CAP PO PRN (20:03)
[2024-05-06] MEDS: DOCUSATE SOD 100 MG CAP PO SCH (22:28)
[2024-05-06] MEDS ORDERED: DOCU-265 PO (23:46)
[2024-05-06] MEDS ORDERED: IBUP-1455 PO (23:46)
[2024-05-06] MEDS ORDERED: CEPH250C PO (23:49)
[2024-05-06] MEDS ORDERED: LABE200T10 PO (23:49)
[2024-05-06] MEDS ORDERED: FERRCAP9 PO (23:52)
--- NOTE | 2024-05-07 00:13 | DVHDS2 ---
Obstetrics Discharge Summary Obstetrics Discharge Summary Date of Admission: May 03, 2024 Date of Discharge: May 07, 2024 Reason For Admission: Induction of Labor Procedures: NST, Ultrasound Intrapartum Procedures: (LOW TRANSVERSE ) Procedures: Antibiotics, Hct/date: (05/06/2024), Hgb/date: (05/06/2024) Operative Complicat: None Discharge Diagnosis: Term -Delivered, Failed Induction Discharge Information: Activity ( as tolerated, no heavy lifting and nothing in the vagina for 6 weeks), Diet (Routine), Medications (rx sent), Instructions (Routine), Discharge to (Home), Accompanied by (partner), Discarge date (05/07/2024) Visit Coding OBGYN Date of Service: May 07, 2024 Billing Provider: JESUS FELICIANO CNM RECHECKER Common Visit Codes: [id number] DISCH DAY <30MIN WERO GOMES MDWF May 07, 2024 00:13
--- NOTE | 2024-05-07 00:19 | DVHPN2 ---
Progress Note Date Seen: May 07, 2024 Subjective S: bleeding is less, eating food without issues, denies lightheaded/dizziness, pain well controlled with oral medications, no concerns with urinating, passing flatus, no BM yet, ambulating well, well vital signs Vital Sign Date Time Temp Pulse Resp B/P (MAP) Pulse Ox O2 Delivery O2 Flow Rate FiO2 05/06/24 22:27 85 139/75 05/06/24 15:00 98.1 16 96 98.1 05/06/24 07:27 Room Air 05/05/24 12:15 7.0 100 Total Intake and Output 05/06/24 05/06/24 05/07/24 15:00 23:00 07:00 Output Total 300 ml 1000 ml Balance -300 ml -1000 ml medications Current Medications Medications Dose Ordered Sig/Alycia Route Start Time Stop Time Status Last Admin Dose Admin Labetalol HCl 20 mg Q2HPRN PRN IV 05/04/24 02:00 05/04/24 04:18 20 MG Witch Kimberly 1 pad PRN PRN TOP 05/04/24 02:45 05/05/24 06:52 1 PAD Sodium Lauryl Sulfate 240 ml PRN PRN TOP 05/04/24 02:45 05/05/24 06:52 240 ML Labetalol HCl 200 mg Q12HR PO 05/04/24 10:00 05/06/24 22:27 200 MG Ondansetron HCl 4 mg Q4HP PRN IV 05/05/24 12:15 Dimethicone 80 mg QID PO 05/06/24 18:00 05/06/24 18:03 80 MG Bisacodyl 10 mg DAILYP PRN HI 05/06/24 12:15 Ibuprofen 800 mg Q8HP PRN PO 05/06/24 12:15 05/06/24 16:53 800 MG Docusate Sodium 100 mg Q12HR PO 05/06/24 22:00 05/06/24 22:28 100 MG Acetaminophen 1,000 mg Q8HP PRN PO 05/07/24 04:00 laboratory and microbiology Laboratory Tests 05/06/24 04:30 Test 05/06/24 04:30 Range/Units Serum Glucose 86 74-106 mg/dL Objective O: VSS Chest: heart sounds normal and lung sounds clear bilaterally Abd: soft, non-tender, fundus at U/firm/midline, active bowel sounds, no rebound or guarding Incision: sylke dressing open to air, clean/dry/intact Ext: Non-tender, No edema, 2+ BLE DTRs Lochia: minimal See lab results Problems(with codes): (1) S/P primary low transverse (2) Iron deficiency anemia (3) Precipitous drop in hematocrit Assessment/Plan A: 39yo now PPD#2 s/p primary Gestational HTN Anemia Rh+ Rubella Immune Pain control with PO medications Bowel regimen P: D/C home today, Dr. Olmos consulted Pt will go home on PO keflex and labetolol per Dr. Olmos Rx sent to pharmacy precautions and preeclampsia warning signs reviewed F/U with [facility] office in 1 week Plan discussed with: Patient Visit Coding OBGYN Date of Service: May 07, 2024 Billing Provider: JESUS FELICIANO CNM [employer] Common Visit Codes: [id number] INP/OBS CARE(HIGH) WERO GOMES MDWF May 07, 2024 00:19
[2024-05-07 03:00] VITALS: BP 138/82; PULSE 72; RESP 18; TEMP 98; O2SAT 95
[2024-05-07] MEDS: ACETAMINOPHEN 500 MG TAB or CAP PO PRN (05:09)
[2024-05-07 07:00] VITALS: BP 158/77; PULSE 80; RESP 18; TEMP 98; O2SAT 97
[2024-05-07 10:04] VITALS: BP 158/77; PULSE 80; TEMP 36.7
[2024-05-07 11:00] VITALS: BP 156/82; PULSE 77; RESP 17; TEMP 98; O2SAT 98
== END 2024-05-07 12:03 | disposition home or self-care (01) | DRG 540 ==
LOC: LDRP 21:50
PROVIDERS: ADMIT Obstetrics & Gynecology; ATTEND Obstetrics & Gynecology
PROC: 10D00Z1 Extraction of Products of Conception, Low, Open Approach (ICD-10-PCS; principal; 2024-05-05 10:55)
DX: O40.3XX0 Polyhydramnios, third trimester, not applicable or unspecified (principal); O99.324 Drug use complicating childbirth; R71.0 Precipitous drop in hematocrit; O99.214 Obesity complicating childbirth; O61.9 Failed induction of labor, unspecified; E66.01 Morbid (severe) obesity due to excess calories; F12.90 Cannabis use, unspecified, uncomplicated; O13.4 Gestational [pregnancy-induced] hypertension without significant proteinuria, complicating childbirth; O32.0XX0 Maternal care for unstable lie, not applicable or unspecified; O48.0 Post-term pregnancy; Z37.0 Single live birth; Z3A.40 40 weeks gestation of pregnancy; O99.02 Anemia complicating childbirth
CPT/HCPCS: 36415; 62282; 76815; 80053; 80307; 81001; 82570; 84156; 84550; 85025; 85610; 85730; 86780; 86803; 86850; 86900; 86901; 94760; 94762; 96360; 96361; 96375; G0378; J0131; J1756; J1885; J2003; J2250; J2405; J2540; J7060